=== PATIENT | female | born 1965 | race American Indian/Alaskan Native ===

== ENCOUNTER 2017-08-20 07:45 | Emergency (ER) | payer MEDICARE ==
[2017-08-20 07:58] VITALS: BP 162/65
[2017-08-20] MEDS ORDERED: ASPIRIN PO ONE (07:58)
[2017-08-20 08:31] LABS: Hematocrit 35.3 % (30.3-42.9); Hemoglobin 11.4 gm/dl (10.1-14.3); Mean Corpuscular HGB Conc 32 % (30-34); Mean Corpuscular Volume 75 fl (79-97); Platelet Count 206 K/mm3 (140-440); Red Blood Count 4.71 M/mm3 (3.65-5.03)
[2017-08-20 08:38] LABS: Mean Corpuscular Hemoglobin 24 pg (28-32); Red Cell Distribution Width 26.8 % (13.2-15.2)
[2017-08-20 08:44] LABS: BUN/Creatinine Ratio 13; Blood Urea Nitrogen 18 mg/dL (7-17); Calcium 8.5 mg/dL (8.4-10.2); Hemolysis Index 7
[2017-08-20 09:28] LABS: Anisocytosis 2+; Total Cells Counted 100
[2017-08-20 09:29] LABS: Hypochromasia 1+; Ovalocytes 1+; Schistocytes Rare; Stomatocytes Rare
--- NOTE | 2017-08-20 15:33 | Emergency Department Report ---
ED Chest Pain HPI - General Chief Complaint: Chest Pain Stated Complaint: LIGHTHEADEDNESS Time Seen by Provider: 08/20/17 15:16 Source: patient Mode of arrival: Ambulatory Limitations: No Limitations - History of Present Illness Initial Comments: Patient is a 52-year-old black female past medical history of diet controlled diabetes as well as congestive heart failure who is presenting with chest discomfort congestion cough and body aches for the past 5 days. Patient denies any nausea vomiting abdominal pain at this time. Patient states the chest pain is aching mostly when she coughs. Patient states she has had fevers at home MAXIMUM TEMPERATURE is 102. Onset: during rest Pain Radiation: none Severity: mild Severity scale (0 -10): 3 Improves With: nothing Context: recent illness - Related Data Home Medications Medication Instructions Recorded Confirmed Last Taken Clonidine HCl [Catapres] 0.3 mg PO TID 12/15/15 12/15/15 12/14/15 Potassium Chloride [Klor-Con] 20 meq PO QDAY 12/15/15 12/15/15 12/14/15 hydrALAZINE [Apresoline TAB] 100 mg PO TID 12/15/15 12/15/15 12/14/15 Previous Rx's Medication Instructions Recorded Last Taken Type AtorvaSTATin [Lipitor] 80 mg PO QHS #30 tablet 12/16/15 Unknown Rx Carvedilol [Coreg] 25 mg PO BID #30 tablet 12/16/15 Unknown Rx Folic Acid/Vit B Comp W-C [Renal 1 cap PO QDAY #30 capsule 12/16/15 Unknown Rx Caps] Furosemide [Lasix TAB] 40 mg PO BID #30 tablet 12/16/15 Unknown Rx ISOSORBIDE MONOnitrate [Imdur ER] 60 mg PO DAILY #30 tablet 12/16/15 Unknown Rx Lisinopril [Zestril TAB] 20 mg PO BID #30 tablet 12/16/15 Unknown Rx Nitroglycerin [Nitrostat] 0.4 mg SL Q5M PRN #100 tab 12/16/15 Unknown Rx Ranolazine ER [Ranexa ER] 500 mg PO BID #60 tablet 12/16/15 Unknown Rx metFORMIN [Glucophage] 500 mg PO BID #60 tablet 12/16/15 Unknown Rx ALBUTEROL Inhaler [ProAir HFA 2 puff IH QID PRN #1 inhalation 08/20/17 Unknown Rx Inhaler] HYDROcodone/APAP 5-325 [[place] 1 each PO Q6HR PRN #12 tablet 08/20/17 Unknown Rx 5/325] predniSONE [Deltasone] 10 mg PO QDAY #5 tab 08/20/17 Unknown Rx Allergies Allergy/AdvReac Type Severity Reaction Status Date / Time No Known Allergies Allergy Verified 08/20/17 07:56 Heart Score - HEART Score History: Slightly suspicious EKG: Non-specific Age: 45-65 Risk factors: 1-2 risk factors Troponin: < normal limit HEART Score: 3 ED Review of Systems ROS: Stated complaint: LIGHTHEADEDNESS Other details as noted in HPI Comment: All other systems reviewed and negative ED Past Medical Hx - Past Medical History Hx Hypertension: Yes Hx Heart Attack/AMI: Yes Hx Congestive Heart Failure: Yes Hx Diabetes: Yes Hx Deep Vein Thrombosis: No Hx Liver Disease: No Hx Asthma: No Hx COPD: No Hx HIV: No - Surgical History Hx Coronary Stent: No Hx Pacemaker: No Hx Internal Defibrillator: No Additional Surgical History: Gastric sleeve - Social History Smoking Status: Never Smoker Substance Use Type: None - Medications Home Medications: Home Medications Medication Instructions Recorded Confirmed Last Taken Type Clonidine HCl [Catapres] 0.3 mg PO TID 12/15/15 12/15/15 12/14/15 History Potassium Chloride [Klor-Con] 20 meq PO QDAY 12/15/15 12/15/15 12/14/15 History hydrALAZINE [Apresoline TAB] 100 mg PO TID 12/15/15 12/15/15 12/14/15 History AtorvaSTATin [Lipitor] 80 mg PO QHS #30 tablet 12/16/15 Unknown Rx Carvedilol [Coreg] 25 mg PO BID #30 tablet 12/16/15 Unknown Rx Folic Acid/Vit B Comp W-C [Renal 1 cap PO QDAY #30 capsule 12/16/15 Unknown Rx Caps] Furosemide [Lasix TAB] 40 mg PO BID #30 tablet 12/16/15 Unknown Rx ISOSORBIDE MONOnitrate [Imdur ER] 60 mg PO DAILY #30 tablet 12/16/15 Unknown Rx Lisinopril [Zestril TAB] 20 mg PO BID #30 tablet 12/16/15 Unknown Rx Nitroglycerin [Nitrostat] 0.4 mg SL Q5M PRN #100 tab 12/16/15 Unknown Rx Ranolazine ER [Ranexa ER] 500 mg PO BID #60 tablet 12/16/15 Unknown Rx metFORMIN [Glucophage] 500 mg PO BID #60 tablet 12/16/15 Unknown Rx ALBUTEROL Inhaler [ProAir HFA 2 puff IH QID PRN #1 inhalation 08/20/17 Unknown Rx Inhaler] HYDROcodone/APAP 5-325 [[place] 1 each PO Q6HR PRN #12 tablet 08/20/17 Unknown Rx 5/325] predniSONE [Deltasone] 10 mg PO QDAY #5 tab 08/20/17 Unknown Rx ED Physical Exam - General Limitations: No Limitations General appearance: alert, in no apparent distress - Head Head exam: Present: atraumatic, normocephalic - Eye Eye exam: Present: normal appearance - ENT ENT exam: Present: mucous membranes moist - Neck Neck exam: Present: normal inspection - Respiratory Respiratory exam: Present: normal lung sounds bilaterally. Absent: respiratory distress - Cardiovascular Cardiovascular Exam: Present: regular rate, normal rhythm. Absent: systolic murmur, diastolic murmur, rubs, gallop - GI/Abdominal GI/Abdominal exam: Present: soft, normal bowel sounds - Extremities Exam Extremities exam: Present: normal inspection - Back Exam Back exam: Present: normal inspection - Neurological Exam Neurological exam: Present: alert, oriented X3 - Psychiatric Psychiatric exam: Present: normal affect, normal mood - Skin Skin exam: Present: warm, dry, intact, normal color. Absent: rash ED Course Vital Signs 08/20/17 07:56 Temperature 98.9 F Pulse Rate 75 Respiratory 16 Rate Blood Pressure 162/65 O2 Sat by Pulse 98 Oximetry ED Medical Decision Making - Lab Data Result diagrams: 08/20/17 08:23 08/20/17 08:20 - EKG Data -: EKG Interpreted by Me - EKG Data Interpretation: other (EKG shows sinus rhythm at a rate of 71 there is a left anterior fascicular block and LVH. T-wave inversions in aVL and T-wave flattening in V6 is no ST segment elevation or depressions. Interpretation is 8 :05 AM) - Medical Decision Making Patient had 3 sets of heart enzymes done here in the emergency department per protocol for chest pain however patient's symptoms are more in line with upper respiratory infection and flulike symptoms. Patient will be discharged home with meds for symptomatic relief Critical care attestation.: If time is entered above; I have spent that time in minutes in the direct care of this critically ill patient, excluding procedure time. ED Disposition Clinical Impression: Flu-like symptoms, Essential (primary) hypertension Chest pain Qualifiers: Chest pain type: other chest pain Qualified Code(s): R07.89 - Other chest pain ; R07.8 - Other chest pain Disposition: TO HOME OR SELFCARE Is pt being admited?: No Does the pt Need Aspirin: No Condition: Stable Instructions: Chest Pain (ED), Hypertension (ED), Influenza (ED) Prescriptions: ALBUTEROL Inhaler [ProAir HFA Inhaler] 2 puff IH QID PRN #1 inhalation PRN Reason: Shortness Of Breath HYDROcodone/APAP 5-325 [[place] 5/325] 1 each PO Q6HR PRN #12 tablet PRN Reason: Pain predniSONE [Deltasone] 10 mg PO QDAY #5 tab Referrals: ALEX HUA MD [Primary Care Provider] - 3-5 Days
== END 2017-08-20 15:39 | disposition home or self-care (01) ==
LOC: ED 07:45
DX: R07.89 Other chest pain (principal); I10 Essential (primary) hypertension; I25.2 Old myocardial infarction; I50.9 Heart failure, unspecified; E11.9 Type 2 diabetes mellitus without complications
CPT/HCPCS: 36415; 80048; 84484; 85007; 85025; 93005; 93010